=== PATIENT | male | born 1935 | race Caucasian/White ===

== ENCOUNTER → 2017-03-10 | Outpatient (CLI) | payer MEDICARE, BC ==
--- NOTE | 2017-03-10 13:29 | XR ---
EXAMINATION TYPE: XR tibia fibula RT DATE OF EXAM: 03/10/2017 CLINICAL HISTORY: Fall injury with pain. TECHNIQUE: Two views of the right leg are obtained. COMPARISON: None. FINDINGS: Osseous structures are somewhat demineralized which is noted lower radiographic sensitivity . There is no acute fracture or dislocation seen in the right tibia or fibula. Meniscal calcification s are present in the right knee. There is joint space loss and spurring patellofemoral compartment. C onsider pseudogout. There is additional spurring superior anterior patellar distal quadriceps tendon attachment. Ankle mortise symmetry is preserved. The overlying soft tissue appears unremarkable. IMPRESSION: There is no acute fracture or dislocation seen in the right tibia or fibula.
--- NOTE | 2017-03-10 14:19 | US ---
EXAMINATION TYPE: US abdomen complete DATE OF EXAM: 03/10/2017 COMPARISON: CT CLINICAL HISTORY: R10.11 RUQ PAIN. Pt states epigastric pain post prandial EXAM MEASUREMENTS: Liver Length: 13.6 cm Gallbladder Wall: 0.2 cm CBD: 0.6 cm Spleen: 8.4 cm Right Kidney: 10.7 x 4.6 x 5.2 cm Left Kidney: 11.5 x 4.9 x 5.0 cm Pt very gassy, limited visualization Pancreas: Obscured by bowel gas Liver: Cyst right lobe= 1.1 x 0.9 x 1.4 cm, other limited visualization showed no abnormality Gallbladder: wnl Evidence for sonographic Carpenter's sign: No CBD: wnl Spleen: wnl Right Kidney: Cyst upper pole= 0.5 cm Left Kidney: Parapelvic cysts, largest= 1.6 x 1.7 x 1.3 cm Upper IVC: wnl Abd Aorta: Proximal portion gassed out, mid and distal appeared ectatic with no evidence of AAA Results called to Dr. Hager at time of exam The pancreas is poorly visualized. The liver is normal in size without biliary dilatation. There is a 1.4 cm, simple appearing cyst in t he right lobe of the liver. The gallbladder is normal without evidence of cholelithiasis. The gallbladder wall measures 2 mm. The distal common hepatic duct measures 6 mm. The spleen is normal in size. There is a 5 mm hypoechoic lesion in the upper pole of the right kidney this is too small accurately characterize. There are parapelvic cysts involving the left kidney. Visualized portions of the aorta and IVC are normal. IMPRESSION: 1. SIMPLE RIGHT HEPATIC CYST. 2. TINY LESION IN THE UPPER POLE OF THE RIGHT KIDNEY, TOO SMALL TO CHARACTERIZE ACCURATELY. 3. PARAPELVIC CYSTS INVOLVING THE LEFT KIDNEY.
== END | disposition home or self-care (01) ==
LOC: RADUSWWP 12:38
PROVIDERS: ATTEND Family Medicine
DX: N28.9 Disorder of kidney and ureter, unspecified (principal); N28.1 Cyst of kidney, acquired; K76.89 Other specified diseases of liver; S80.11XA Contusion of right lower leg, initial encounter
CPT/HCPCS: 76700

== ENCOUNTER → 2017-04-02 | Outpatient (CLI) | payer MEDICARE, BC ==
--- NOTE | 2017-04-02 11:24 | NM ---
EXAMINATION TYPE: NM hepatobiliary w EF DATE OF EXAM: 04/02/2017 COMPARISON: Ultrasound 03/10/2017 HISTORY: 82-year-old male with abdominal pain TECHNIQUE: After the intravenous administration of 5.38 mCi Tc 99m Mebrofenin hepatobiliary scintigra phy is performed. Immediate images post injection. FINDINGS: There is satisfactory initial accumulation of tracer by the liver. The gallbladder is visualized wit hin 8 minutes. The small bowel activity is noted after Ensure administration. At one hour 8 ounces o f oral ensure plus is given to mimic CCK and gallbladder ejection fraction is calculated at 88 %, mitch vated above the typical range. IMPRESSION: 1. No scintigraphic evidence for acute/chronic cholecystitis or biliary dyskinesia. 2. Elevated gallbladder ejection fraction which has been described in the setting of gallbladder hype rkinesia.
== END | disposition home or self-care (01) ==
LOC: RADNMMAIN 07:25
PROVIDERS: ATTEND Family Medicine
DX: K82.8 Other specified diseases of gallbladder (principal); R10.9 Unspecified abdominal pain
CPT/HCPCS: 78226; A9537

== ENCOUNTER 2017-06-01 06:26 | Day surgery (SDC) | payer MEDICARE, BC ==
[2017-05-25 09:31] VITALS: BMI 26.4
[~2017-06-01 06:26] MED LIST: DEXAMETHASONE SOD PHOSPHATE 10 MG/ML 1 ML VIAL IV ONE; HEPARIN SODIUM,PORCINE 5,000 UNIT/ML 1 ML VIAL SQ ONE; HYDROmorphone 1 MG/ML 1 ML SYRINGE IVP PRN; LIDOCAINE 1% 20 ML VIAL (10MG/ML) FOR IV START INTRADERMA PRN; MIDAZOLAM 2 MG/2 ML VIAL IV PRN; SCOPOLAMINE 1.5MG/72HR PATCH TRANSDERM ONE; ceFAZolin 2 GM in SODIUM CHLORIDE 0.9% 100 ML IVPB ONE
[2017-06-01] MEDS: ONDANSETRON 4 MG/2 ML VIAL IVP ONE ×2 (07:00→12:03)
[2017-06-01] MEDS: LACTATED RINGERS 1,000 ML IV SCH ×3 (07:07→12:51)
--- NOTE | 2017-06-01 07:54 | P.GSHP ---
History of Present Illness H&P Date: 06/01/17 Chief Complaint: Right upper quadrant pain This is a 82-year-old male who's had complaints of right upper quadrant pain. His recent HIDA scan shows an elevated ejection fraction consistent with biliary hyperkinesis and chronic cholecystitis. 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 History of Any Multi-Drug Resistant Organisms: None Reported Past Surgical History: Hernia Repair Additional Past Surgical History / Comment(s): cataracts germaine eyes Past Anesthesia/Blood Transfusion Reactions: No Reported Reaction Smoking Status: Never smoker - Past Family History Mother Family Medical History: Cancer Father Family Medical History: Cancer Additional Family Medical History / Comment(s): prostate Medications and Allergies Home Medications Medication Instructions Recorded Confirmed Type Aspirin 81 mg PO DAILY 09/09/14 06/01/17 History Acetaminophen Tab [Tylenol] 650 mg PO Q6H PRN 10/03/14 06/01/17 History Pravastatin Sodium [Pravachol] 40 mg PO HS 10/03/14 06/01/17 History cloNIDine HCL [Catapres] 0.2 mg PO BID 11/11/15 06/01/17 History Cholecalciferol [Vitamin D3] 5,000 unit PO DAILY 05/25/17 06/01/17 History FLUoxetine HCL [PROzac] 20 mg PO DAILY 05/25/17 06/01/17 History Multivitamins, Thera [Multivitamin 1 tab PO DAILY 05/25/17 06/01/17 History (formulary)] Allergies Allergy/AdvReac Type Severity Reaction Status Date / Time No Known Allergies Allergy Verified 06/01/17 06:49 Surgical - Exam Vital Signs Temp Pulse Resp BP Pulse Ox 98.1 F 48 L 16 119/80 95 06/01/17 07:11 06/01/17 07:11 06/01/17 07:11 06/01/17 07:11 06/01/17 07:11 - General well developed, no distress - Eyes PERRL - ENT normal pinna - Neck no masses - Respiratory normal expansion - Cardiovascular Rhythm: regular - Abdomen Mild right upper quadrant tenderness Abdomen: soft Assessment and Plan Plan: Right upper quadrant pain Abnormal HIDA scan We'll perform laparoscopic cholecystectomy
[2017-06-01] MEDS ORDERED: LIDOCAINE 1% INJ 10MG/ML (20 ML MDV) ONE (07:57)
[2017-06-01] MEDS ORDERED: fentaNYL (PF) 50 MCG/ML 2 ML AMP ONE (07:57)
[2017-06-01] MEDS ORDERED: NEOSTIGMINE 1 MG/ML 10 ML VIAL ONE (07:57)
[2017-06-01] MEDS ORDERED: PROPOFOL 10 MG/ML 20 ML VIAL IV ONE (07:57)
[2017-06-01] MEDS ORDERED: GLYCOPYRROLATE 0.2 MG/ML 2 ML VIAL ONE (07:57)
[2017-06-01] MEDS ORDERED: SUCCINYLCHOLINE CHLORIDE 100 MG/5 ML SYR IV ONE (07:57)
[2017-06-01] MEDS ORDERED: ROCURONIUM BROMIDE 10 MG/ML 10 ML VIAL IV ONE (07:57)
[2017-06-01] MEDS ORDERED: LIDOCAINE 2%-EPI 1:100,000 20 ML VIAL SQ ONE (08:20)
[2017-06-01] MEDS ORDERED: BUPIVACAINE (PF) 0.25% 30 ML VIAL SQ ONE (08:20)
[2017-06-01 09:01] VITALS: TEMP 96.2
[2017-06-01] MEDS ORDERED: HYDROmorphone 1 MG/ML 1 ML SYRINGE IVP ONE ×4 (09:16→09:31)
[2017-06-01] MEDS ORDERED: fentaNYL (PF) 50 MCG/ML 2 ML AMP IVP ONE (09:36)
[2017-06-01] MEDS ORDERED: LACTATED RINGERS 1,000 ML IV ONE (09:41)
[2017-06-01 10:24] VITALS: RESP 16
[2017-06-01] MEDS ORDERED: HYDROcodone/APAP 7.5-325MG 1 EACH TAB PO ONE (10:58)
[2017-06-01 12:04] VITALS: BP 145/78; PULSE 76
--- NOTE | 2017-06-05 11:45 | OP ---
Date of Procedure: 06/01/17 Preoperative Diagnosis: Cholecystitis Postoperative Diagnosis: Cholecystitis Procedure(s) Performed: Laparoscopic cholecystectomy Implants: Anesthesia: DEX Surgeon: Richard Durán Estimated Blood Loss (ml): 5 Pathology: other (Gallbladder) Condition: stable Disposition: PACU Indications for Procedure: Operative Findings: Description of Procedure: The patient was placed on the operating table. The patient received a general endotracheal tube anesthesia. The patients abdomen was prepped and draped in the usual sterile fashion. Through an infraumbilical stab incision, the fascia of the anterior abdominal wall was grasped with a pair of Kochers and then the Veress needle was placed in the peritoneal cavity. Position of the Veress needle was confirmed with positive drop test. The abdomen was then insufflated. After adequate insufflation, the 10 mm trocar was placed in the peritoneal cavity. Following this the laparoscope was placed in the peritoneal cavity. The patient was placed in the head-up, right side up position and then a 5 mm trocar was placed in the right lateral and right subcostal position under direct visualization. A 8 mm trocar was placed in the epigastric position. The gallbladder was grasped in the fundus and infundibulum. Traction on the gallbladder was placed in the lateral and the cephalad positions. The triangle of Calot was visualized.. The cystic duct was bluntly dissected until the union of the cystic duct and common bile duct was seen. The cystic duct was then divided and sealed with the Harmonic scissors. A PDS Endoloop was then placed throughout the cystic duct stump. The cystic artery divided and sealed with the Harmonic scissors. The gallbladder was then removed from the liver bed using Harmonic scissors. The gallbladder was then extracted through the epigastric port site. Operative field was checked for any bleeding spots and Harmonic scissors was used to coagulate the liver bed. The abdomen was irrigated. The trocars were removed. The skin was closed using interrupted 3-0 Vicryl suture. Dermabond dressing were applied. The patient tolerated the procedure well. MICAH
== END 2017-06-01 13:02 | disposition home or self-care (01) ==
LOC: OR 06:26
PROVIDERS: ATTEND Surgery
DX: K81.1 Chronic cholecystitis (principal); E78.5 Hyperlipidemia, unspecified; I10 Essential (primary) hypertension; Z85.46 Personal history of malignant neoplasm of prostate; Z92.3 Personal history of irradiation; I69.328 Other speech and language deficits following cerebral infarction; Z79.82 Long term (current) use of aspirin; Z79.899 Other long term (current) drug therapy
CPT/HCPCS: 88304; 47562; J1644; J1100; J2710; J0690; J2405; J2001; J3010; J1170; J0330; J2704

== ENCOUNTER → 2017-12-22 | Outpatient (CLI) | payer MEDICARE, BC ==
--- NOTE | 2017-12-22 12:18 | CT ---
EXAMINATION TYPE: CT abdomen wo con DATE OF EXAM: 12/22/2017 HISTORY: Mid abd pain, history of prostate cancer. CT DLP: 661 mGycm. Automated Exposure Control for Dose Reduction was Utilized. TECHNIQUE: CT scan of the abdomen is performed without oral or IV contrast. COMPARISON: CT abdomen and pelvis September 14, 2012 FINDINGS: Within the limitations of a non-contrast study, the following observations are made. LUNG BASES: There is partial visualization of 6 mm groundglass nodule axial image 1 with central focu s of calcification. This is outside field of view on prior study. Advise nonemergent CT chest follow- up. Dependent atelectasis in both lung bases is present. There is additional focal linear scarring or atelectasis in the posterior right lung base. LIVER/GB: A few subcentimeter low dense lesions scattered throughout the liver are too small to furth er characterize but presumed benign. Gallbladder is now not visualized and presumed surgically absent . PANCREAS: No significant abnormality is seen. SPLEEN: No significant abnormality is seen. ADRENALS: No significant abnormality is seen. KIDNEYS: No right-sided renal calculi or hydronephrosis. There are subcentimeter low dense lesion lef t kidney posteriorly axial image 31 upper pole level stable presumed benign. There are 2 calculi scat tered throughout left kidney measuring up to 3 mm in size at level of left renal pelvis. There are pr ominent parapelvic cyst centrally in the left kidney. There is no hydronephrosis or obstructing proxi mal to mid left ureter calculi. BOWEL: There is small hiatal hernia. The small or large bowel dilatation. LYMPH NODES: No greater than 1cm abdominal lymph nodes are appreciated. OSSEOUS STRUCTURES: There is grade 1 anterolisthesis of L5 on S1. There is moderate to advanced multi level disc space narrowing and vacuum disc phenomenon L3-L4 through L5-S1 levels. OTHER: There is moderate to severe calcified plaque of abdominal aorta extending into visualized port ion of the iliac branch vessels. IMPRESSION: Small nonobstructing left-sided renal calculi. No bowel obstruction is seen. No significa nt acute finding is seen to account for patient's symptoms. Advise nonemergent chest CT follow-up for right lung findings.
== END | disposition home or self-care (01) ==
LOC: RADCTMAIN 11:34
PROVIDERS: ATTEND Family Medicine
DX: N20.0 Calculus of kidney (principal)
CPT/HCPCS: 74150

== ENCOUNTER → 2018-01-07 | Outpatient (CLI) | payer MEDICARE, BC ==
--- NOTE | 2018-01-07 10:17 | FL ---
EXAMINATION TYPE: FL barium swallow w SBFT DATE OF EXAM: 01/07/2018 CLINICAL HISTORY: Generalized abdominal pain. TECHNIQUE: A double contrast esophagram is performed utilizing air and barium. Small bowel follow th rough was then performed. A total of 2.1 minutes of fluoroscopy time was utilized during procedure. P t given 4oz EZHD, 12oz EZ aque, 1pkg EZGas. 41 fluoroscopic images were saved. COMPARISON: None FINDINGS: The esophagus shows normal motility and emptying into the stomach. There is a small hernia present. No stricture noted. 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 No signific ant gastroesophageal reflux was seen during real time performance of this study. The small bowel study shows normal transit to the colon in less than 20 minutes indicative of hyperpe ristalsis. There is normal mucosal fold pattern throughout the small bowel. There is no evidence of any stricture or filling defect noted. The terminal ileum is unremarkable. IMPRESSION: 1. Small hiatal hernia with no significant gastroesophageal reflux. 2. Small bowel hyperperistalsis with advancement of contrast into the descending colon by 20 minutes. 3. 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
== END | disposition home or self-care (01) ==
LOC: RADFLMAIN 07:46
PROVIDERS: ATTEND Family Medicine
DX: K44.9 Diaphragmatic hernia without obstruction or gangrene (principal); R19.2 Visible peristalsis
CPT/HCPCS: 74245

== ENCOUNTER 2018-11-14 15:03 | Observation (INO) | payer MEDICARE, BC ==
--- NOTE | 2018-11-14 16:14 | ED ---
General Adult HPI - General Chief complaint: Recheck/Abnormal Lab/Rx Stated complaint: abn labs Time Seen by Provider: 11/14/18 15:17 Source: patient, family, EMS, RN notes reviewed, old records reviewed (From [facility]) Mode of arrival: EMS Limitations: altered mental status, physical limitation - History of Present Illness Initial comments: Patient is a pleasant 83-year-old male presenting to the emergency Department with complaints of fall and arm pain. Patient was at [facility] ER earlier today and transferred. They did have concern for elevation of troponin. During discussion with physician there there was some concern for possible T6 compression fracture however I do not see documentation for that on the patient's computed tomography scan. is present and states she heard patient went brain. She states patient does have poor communication skills and this is evident during examination. Patient has limited verbal capability from previous stroke. Patient does complain only the discomfort of the right shoulder. Physician prior to transfer stated that they did reduce the shoulder. They also started patient on heparin. - Related Data Home Medications Medication Instructions Recorded Confirmed Aspirin 81 mg PO DAILY 09/09/14 11/14/18 Pravastatin Sodium [Pravachol] 40 mg PO HS 10/03/14 11/14/18 cloNIDine HCL [Catapres] 0.2 mg PO BID 11/11/15 11/14/18 Cholecalciferol [Vitamin D3] 5,000 unit PO DAILY 05/25/17 11/14/18 Multivitamins, Thera [Multivitamin 1 tab PO DAILY 05/25/17 11/14/18 (formulary)] Magnesium Gluconate [Magonate] 500 mg PO DAILY 11/14/18 11/14/18 Allergies Allergy/AdvReac Type Severity Reaction Status Date / Time No Known Allergies Allergy Verified 11/14/18 15:58 Review of Systems ROS Statement: Those systems with pertinent positive or pertinent negative responses have been documented in the HPI. ROS Other: All systems not noted in ROS Statement are negative. Constitutional: Denies: fever Eyes: Denies: eye pain ENT: Denies: ear pain Respiratory: Denies: cough Cardiovascular: Denies: chest pain Endocrine: Denies: fatigue Gastrointestinal: Denies: abdominal pain Genitourinary: Denies: dysuria Musculoskeletal: Reports: as per HPI, other (Right shoulder pain). 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 History of Any Multi-Drug Resistant Organisms: None Reported Past Surgical History: Hernia Repair Additional Past Surgical History / Comment(s): cataracts germaine eyes Past Anesthesia/Blood Transfusion Reactions: No Reported Reaction Past Psychological History: No Psychological Hx Reported Smoking Status: Never smoker - Past Family History Mother Family Medical History: Cancer Father Family Medical History: Cancer Additional Family Medical History / Comment(s): prostate General Exam Limitations: altered mental status General appearance: alert, in no apparent distress Head exam: Present: atraumatic Eye exam: Present: normal appearance, PERRL ENT exam: Present: normal oropharynx Neck exam: Present: normal inspection Respiratory exam: Present: normal lung sounds bilaterally Cardiovascular Exam: Present: regular rate, normal rhythm GI/Abdominal exam: Present: soft. Absent: tenderness Extremities exam: Present: other (Right arm is in a sling. There is tenderness to the shoulder region. Distally the extremity is intact.) Back exam: Present: normal inspection. Absent: tenderness Neurological exam: Present: alert, other (Limited speech. Does follow commands. ). Absent: motor sensory deficit Psychiatric exam: Present: normal affect, normal mood Skin exam: Present: normal color Course Vital Signs 11/14/18 11/14/18 11/14/18 15:09 16:43 17:15 Temperature 98.6 F Pulse Rate 86 96 92 Pulse Rate [ Pulse Oximetery ] Respiratory 18 18 18 Rate Blood Pressure 143/96 148/72 142/88 Blood Pressure [Left Arm Supine] O2 Sat by Pulse 96 100 95 Oximetry 11/14/18 11/14/18 11/14/18 17:48 18:28 18:51 Temperature 100.5 F H Pulse Rate 103 H 103 H Pulse Rate [ 100 Pulse Oximetery ] Respiratory 18 18 18 Rate Blood Pressure 140/87 149/90 Blood Pressure 157/81 [Left Arm Supine] O2 Sat by Pulse 98 94 L 95 Oximetry 11/14/18 11/14/18 19:26 20:06 Temperature 99.2 F 99.4 F Pulse Rate 105 H 105 H Pulse Rate [ Pulse Oximetery ] Respiratory 18 18 Rate Blood Pressure 149/96 140/82 Blood Pressure [Left Arm Supine] O2 Sat by Pulse 92 L 90 L Oximetry - Reevaluation(s) Reevaluation #1: 11/14/18 16:39 Case was discussed with Dr. Farmer who does recommend repeating shoulder x-ray and reduce if needed 11/14/18 17:[address] Golden, who will admit covering for Dr. Hager. EKG Findings - EKG Comments: EKG Findings:: Normal sinus rhythm 84. IL 138. QRS 86. QT 332. QTC 392. Left axis. Low QRS voltage. No acute ST change. Medical Decision Making - Lab Data Result diagrams: 11/15/18 04:57 11/15/18 05:12 Disposition Clinical Impression: Shoulder dislocation, Elevated troponin Disposition: ADMITTED IP TO THIS HOSP
[2018-11-14] MEDS ORDERED: HEPARIN SODIUM,PORCINE 5,000 UNIT/ML 1 ML VIAL IV PRN (16:39)
[2018-11-14] MEDS ORDERED: NITROGLYCERIN SL TABS 0.4 MG TAB SUBLINGUAL PRN (16:39)
[2018-11-14] MEDS ORDERED: HEPARIN SOD,PORK IN 0.45% NACL 25,000 UNIT in 0.45% NACL 1 250ML.BAG IV SCH (16:45)
[2018-11-14] MEDS: MORPHINE SULFATE 4 MG/ML SYRINGE IVP PRN ×2 (17:11→22:13)
[2018-11-14 18:45] LABS: Creatine Kinase MB 3.7 ng/mL (0.0-2.4)
[2018-11-14 18:50] LABS: Troponin I 0.068 ng/mL (0.000-0.034)
--- NOTE | 2018-11-14 19:19 | XR ---
EXAMINATION TYPE: XR shoulder complete RT DATE OF EXAM: 11/14/2018 COMPARISON: NONE HISTORY: Pain TECHNIQUE: Shoulder examined in 3 views FINDINGS: The humeral head articulates with the glenoid. The acromio-clavicular junction is normal. There is an avulsion of the greater tuberosity. A follow up study can be performed 7-10 days from acute trauma for continued pain. IMPRESSION: 1. Avulsion of the greater tuberosity right humerus.
[2018-11-14 20:46] VITALS: BMI 29.7
[2018-11-14] MEDS ORDERED: ACETAMINOPHEN TAB 325 MG TAB PO PRN (21:29)
[2018-11-14] MEDS ORDERED: PRAVASTATIN SODIUM 40 MG TAB PO SCH (21:30)
[2018-11-14] MEDS: NITROGLYCERIN OINT 1 INCH/GM PACKET TOPICAL SCH (21:58)
[2018-11-15 00:27] LABS: Troponin I 0.058 ng/mL (0.000-0.034)
[2018-11-15] MEDS: NITROGLYCERIN OINT 1 INCH/GM PACKET TOPICAL SCH ×2 (00:46→06:48)
[2018-11-15] MEDS: MORPHINE SULFATE 4 MG/ML SYRINGE IVP PRN (01:52)
[2018-11-15] MEDS ORDERED: ALPRAZolam 0.25 MG TAB PO PRN (02:25)
[2018-11-15 04:18] VITALS: TEMP 97.9
[2018-11-15] MEDS ORDERED: NALOXONE 0.4 MG/ML 1 ML VIAL IV STA (05:15)
[2018-11-15 05:23] LABS: Glucose,Whole Blood 163 mg/dL (75-99)
[2018-11-15] MEDS ORDERED: FLUMAZENIL 0.1 MG/ML 5 ML VIAL IVP STA (05:31)
[2018-11-15 05:32] LABS: Basophils % (A) 0 %; Eosinophils # (A) 0.1 k/uL (0-0.7); Eosinophils % (A) 1 %; HGB 15.2 gm/dL (13.0-17.5); Lymphocytes # (A) 1.2 k/uL (1.0-4.8); Lymphocytes % (A) 10 %; MCH 29.9 pg (25.0-35.0); MCHC 31.6 g/dL (31.0-37.0); MCV 94.7 fL (80.0-100.0); Mean Platelet Volume 6.7; Monocytes # (A) 0.9 k/uL (0-1.0); Monocytes % (A) 8 %; Neutrophils # (A) 9.2 k/uL (1.3-7.7); Neutrophils % (A) 80 %; Platelet Count 185 k/uL (150-450); RBC 5.07 m/uL (4.30-5.90); RDW 14.1 % (11.5-15.5); WBC 11.5 k/uL (3.8-10.6)
[2018-11-15] MEDS ORDERED: LORazepam 2 MG/ML INJ IV STA (05:32)
[2018-11-15 05:40] LABS: Partial Thromboplastin Time 45.6 sec (22.0-30.0); Prothrombin Time 10.8 sec (9.0-12.0)
[2018-11-15] MEDS ORDERED: DILTIAZEM DRIP BOLUS FROM BAG 1 MG SOLN IV ONE (05:53)
--- NOTE | 2018-11-15 05:55 | CT ---
EXAM: CT Head Without Intravenous Contrast CLINICAL HISTORY: possible seizure TECHNIQUE: Axial computed tomography images of the head/brain without intravenous contrast. CTDI is 51.8 mGy and DLP is 1148 mGy-cm. This CT exam was performed using one or more of the following dose reduction techniques: automated exposure control, adjustment of the mA and/or kV according to patient size, and/or use of iterative reconstruction technique. COMPARISON: No relevant prior studies available. FINDINGS: Brain: 2 Small areas of Subarachnoid hemorrhage are noted, one in the left and a second in the right frontal lobe. No additional areas of hemorrhage are identified. Area of encephalomalacia noted in the left temporal and parietal lobe. Mild diffuse volume loss.. Ventricles: Unremarkable. No ventriculomegaly. Bones/joints: Unremarkable. No acute fracture. Soft tissues: Unremarkable. Sinuses: Unremarkable as visualized. No acute sinusitis. Mastoid air cells: Unremarkable as visualized. No mastoid effusion. IMPRESSION: 2 small areas of subarachnoid hemorrhage noted in the frontal lobes. No other areas of hemorrhage are noted. Critical Value Communications 11/15/18 06:11 Call Doctor Regarding Intracranial Hemorrhage, called Dr. Brandon on 11/15 06:11 (-05:00)
[2018-11-15] MEDS ORDERED: DILTIAZEM 125 MG in SODIUM CHLORIDE 0.9% 100 ML IV SCH (06:00)
[2018-11-15 06:06] LABS: Calcium 9.3 mg/dL (8.4-10.2); Potassium 4.8 mmol/L (3.5-5.1)
[2018-11-15 07:03] VITALS: BP 161/86; PULSE 106; RESP 20
[2018-11-15] MEDS ORDERED: NON-FORMULARY DRUG (Magnesium Gluconate 500 MG) PO SCH (09:00)
[2018-11-15] MEDS ORDERED: ASPIRIN 325 MG TAB PO SCH (09:00)
[2018-11-15] MEDS ORDERED: CHOLECALCIFEROL 1,000 UNIT TAB PO SCH (09:00)
[2018-11-15] MEDS ORDERED: cloNIDine HCL 0.2 MG TAB PO SCH (09:00)
[2018-11-15] MEDS ORDERED: MULTIVITAMINS, THERA 1 EACH TAB PO SCH (12:00)
--- NOTE | 2018-11-15 17:26 | P.HPIM ---
History of Present Illness H&P Date: 11/15/18 Chief Complaint: Fall This is an 83-year-old gentleman who presented emergency department as a transfer from [facility]. The patient was seen and [facility] earlier for a fall and arm pain. The patient was found to have avulsion of the greater tuberosity of the right humerus. The patient was found to have elevated troponins and was subsequently transferred to our facility. The patient apparently has a history of a previous stroke and has limited verbal capacity. The patient's shoulder was reduced prior to arrival. The patient was started on heparin for NSTEMI. It is unclear if the patient had a CT of the brain done at [facility]. The patient was admitted and became increasingly confused and had possible seizure-like activity as noted from the room service attendant.. A rapid response was called and the patient was given Ativan for seizure like activity. The patient was taken down for stat CT of the brain. He was found to have 2 small areas of subarachnoid hemorrhage noted in the frontal lobes. Heparin was immediately discontinued. The patient had an episode of SVT and cardiology was notified. He was started on a heparin drip. [facility] was contacted regarding transfer due to the patient's new subarachnoid hemorrhages. The patient was transferred at 0700. 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 History of Any Multi-Drug Resistant Organisms: None Reported Past Surgical History: Hernia Repair Additional Past Surgical History / Comment(s): cataracts germaine eyes Past Anesthesia/Blood Transfusion Reactions: No Reported Reaction Past Psychological History: No Psychological Hx Reported Smoking Status: Never smoker Past Alcohol Use History: None Reported Past Drug Use History: None Reported - Past Family History Mother Family Medical History: Cancer Father Family Medical History: Cancer Additional Family Medical History / Comment(s): prostate Medications and Allergies Home Medications Medication Instructions Recorded Confirmed Type Aspirin 81 mg PO DAILY 09/09/14 11/14/18 History Pravastatin Sodium [Pravachol] 40 mg PO HS 10/03/14 11/14/18 History cloNIDine HCL [Catapres] 0.2 mg PO BID 11/11/15 11/14/18 History Cholecalciferol [Vitamin D3] 5,000 unit PO DAILY 05/25/17 11/14/18 History Multivitamins, Thera [Multivitamin 1 tab PO DAILY 05/25/17 11/14/18 History (formulary)] Magnesium Gluconate [Magonate] 500 mg PO DAILY 11/14/18 11/14/18 History Allergies Allergy/AdvReac Type Severity Reaction Status Date / Time No Known Allergies Allergy Verified 11/14/18 15:58 Physical Exam Osteopathic Statement: *. No significant issues noted on an osteopathic structural exam other than those noted in the History and Physical/Consult. Vitals: Vital Signs Temp Pulse Pulse Resp BP BP Pulse Ox 11/15/18 07:00 106 H 20 161/86 94 L 11/15/18 06:45 109 H 18 158/77 93 L 11/15/18 06:42 106 H 18 131/73 93 L 11/15/18 06:40 110 H 18 131/73 94 L 11/15/18 06:33 121 H 18 146/88 94 L 11/15/18 06:15 94 L 11/15/18 05:45 122 H 22 125/85 94 L 11/15/18 05:15 25 H 11/15/18 05:09 128 H 24 138/71 94 L 11/15/18 05:02 132 H 30 H 170/89 82 L 11/15/18 04:00 97.9 F 101 H 18 141/87 91 L 11/15/18 00:00 98.8 F 105 H 18 143/82 94 L 11/14/18 20:06 99.4 F 105 H 18 140/82 90 L 11/14/18 19:26 99.2 F 105 H 18 149/96 92 L 11/14/18 18:51 103 H 18 149/90 95 11/14/18 18:28 100.5 F H 100 18 157/81 94 L 11/14/18 17:48 103 H 18 140/87 98 Intake and Output 11/15/18 11/15/18 11/15/18 06:59 14:59 22:59 Intake Total 71.928 Output Total 125 Balance -53.072 Intake: Intake, IV Titration 71.928 Amount Heparin Sod,Pork in 0.45% 71.928 NaCl 25,000 unit In 0.45 % NaCl 1 250ml.bag @ 11. 02 UNITS/KG/HR 9.99 mls/ hr IV .Q24H [facility] Rx#: [id number] Output: Urine 125 Other: Voiding Method Urinal Diaper Weight 95.5 kg Physical exam was not completed as the patient was transferred in the middle of the night. And was subsequently transferred to [facility] prior to examination. Results CBC & Chem 7: 11/15/18 04:57 11/15/18 05:12 Labs: Abnormal Lab Results - Last 24 Hours (Table) 11/14/18 11/14/18 11/14/18 Range/Units 18:00 18:00 23:17 WBC (3.8-10.6) k/uL Neutrophils # (1.3-7.7) k/uL APTT 30.8 H 38.5 H (22.0-30.0) sec Chloride (98-107) mmol/L Carbon Dioxide (22-30) mmol/L Glucose (74-99) mg/dL POC Glucose (mg/dL) (75-99) mg/dL Total Creatine Kinase 738 H (55-170) U/L CK-MB (CK-2) 3.7 H (0.0-2.4) ng/mL Troponin I 0.068 H* (0.000-0.034) ng/mL LDL Cholesterol, Calc (0-99) mg/dL 11/14/18 11/15/18 11/15/18 Range/Units 23:17 04:57 05:02 WBC 11.5 H (3.8-10.6) k/uL Neutrophils # 9.2 H (1.3-7.7) k/uL APTT (22.0-30.0) sec Chloride (98-107) mmol/L Carbon Dioxide (22-30) mmol/L Glucose (74-99) mg/dL POC Glucose (mg/dL) 163 H (75-99) mg/dL Total Creatine Kinase 825 H (55-170) U/L CK-MB (CK-2) 4.0 H (0.0-2.4) ng/mL Troponin I 0.058 H* (0.000-0.034) ng/mL LDL Cholesterol, Calc (0-99) mg/dL 11/15/18 11/15/18 Range/Units 05:12 05:12 WBC (3.8-10.6) k/uL Neutrophils # (1.3-7.7) k/uL APTT 45.6 H (22.0-30.0) sec Chloride 114 H (98-107) mmol/L Carbon Dioxide 18 L (22-30) mmol/L Glucose 148 H (74-99) mg/dL POC Glucose (mg/dL) (75-99) mg/dL Total Creatine Kinase (55-170) U/L CK-MB (CK-2) (0.0-2.4) ng/mL Troponin I (0.000-0.034) ng/mL LDL Cholesterol, Calc 105 H (0-99) mg/dL Thrombosis Risk Factor Assmnt - Choose All That Apply Any of the Below Risk Factors Present?: Yes Each Factor Represents 1 point: Medical pt on bed rest Other Risk Factors: Yes Each Risk Factor Represents 3 Points: Age 75 years or older Other congenital or acquired thrombophilia - If yes, enter type in comment: No Thrombosis Risk Factor Assessment Total Risk Factor Score: 4 Thrombosis Risk Factor Assessment Level: Moderate Risk Assessment and Plan Assessment: Status post fall Avulsion of the right humerus Acute frontal lobe subarachnoid hemorrhages Encephalopathy Hypertension NSVT NSTEMI Possible seizure like activity Hyperglycemia History of stroke with residual dysarthria Dyslipidemia History of prostate cancer The patient was stabilized by nursing staff and subsequently transferred to [facility] for neurology and neurosurgery evaluation All anticoagulation on hold Seizure precautions Rate control with Cardizem
--- NOTE | 2018-11-15 17:28 | P.TRANS ---
Providers Date of admission: 11/14/18 16:40 Expected date of discharge: 11/15/18 Attending physician: Ortega Hager Consults: 11/14/18 16:40 Consult Physician Urgent Consulting Provider: Troy Farmer Consult Reason/Comments: shoulder dislocation, evaluate t6 Do you want consulting provider notified?: Already Contacted 11/14/18 17:02 Consult Physician Urgent Consulting Provider: Haroldo Palacios Consult Reason/Comments: cardiac evaluation Do you want consulting provider notified?: Yes Primary care physician: [facility] Course: This is an 83-year-old gentleman who presented emergency department as a transfer from [facility]. The patient was seen and [facility] earlier for a fall and arm pain. The patient was found to have avulsion of the greater tuberosity of the right humerus. The patient was found to have elevated troponins and was subsequently transferred to our facility. The patient apparently has a history of a previous stroke and has limited verbal capacity. The patient's shoulder was reduced prior to arrival. The patient was started on heparin for NSTEMI. It is unclear if the patient had a CT of the brain done at [facility]. The patient was admitted and became increasingly confused and had possible seizure-like activity as noted from the folder and notcher.. A rapid response was called and the patient was given Ativan for seizure like activity. The patient was taken down for stat CT of the brain. He was found to have 2 small areas of subarachnoid hemorrhage noted in the frontal lobes. Heparin was immediately discontinued. The patient had an episode of SVT and cardiology was notified. He was started on a heparin drip. [facility] was contacted regarding transfer due to the patient's new subarachnoid hemorrhages. The patient was transferred at 0700. Pertinent Studies: CT Brain Right shoulder Xray Patient Condition at Discharge: Critical Plan - Transfer Summary Follow up Appointment(s)/Referral(s): Ortega Hager MD [Primary Care Provider] - 1-2 days Discharge Disposition: OTHER INSTITUTION NOT DEFINED - Out of Hospital Transfer - Req. Specs Out of Hospital Transfer - Requested Specifics: Neurological ICU
== END 2018-11-15 07:31 | disposition short-term general hospital (02) ==
LOC: EC 15:03 → 3SCARD 16:40
PROVIDERS: ADMIT Family Medicine; ATTEND Family Medicine
DX: I21.4 Non-ST elevation (NSTEMI) myocardial infarction (principal); I60.8 Other nontraumatic subarachnoid hemorrhage; S43.004A Unspecified dislocation of right shoulder joint, initial encounter; I47.1 Supraventricular tachycardia; E78.5 Hyperlipidemia, unspecified; I10 Essential (primary) hypertension; G93.40 Encephalopathy, unspecified; Z92.3 Personal history of irradiation; I69.322 Dysarthria following cerebral infarction; R56.9 Unspecified convulsions; Z79.82 Long term (current) use of aspirin; Z79.899 Other long term (current) drug therapy; Z85.46 Personal history of malignant neoplasm of prostate
CPT/HCPCS: 96376 ×2; 96366 ×2; 96375 ×2; 96365; 99285; 36415; 93005; 80061; 80048; 82550; 82553; 83735; 84484; 85025; 85610; 85730 ×2; 73030; 70450; G0378 ×2; J2060; J2270 ×2; J2310; J1644

== ENCOUNTER → 2021-12-09 | Outpatient (CLI) | payer MEDICARE, BC ==
--- NOTE | 2021-12-09 15:41 | CT ---
"EXAMINATION TYPE: CT abdomen pelvis wo con DATE OF EXAM: 12/09/2021 COMPARISON: Outside CT scan dated 11/14/2018 HISTORY: flank pain CT DLP: 770.8 mGycm Automated exposure control for dose reduction was used. TECHNIQUE: Helical acquisition of images was performed from the lung bases through the pelvis. FINDINGS: LUNG BASES: Scattered subsegmental pulmonary atelectasis. LIVER/GB: Scattered few hepatic hypodensities measuring up to 16mm, likely representing hepatic cysts , stable. Previous cholecystectomy. PANCREAS: No significant abnormality is seen. SPLEEN: No significant abnormality is seen. ADRENALS: No significant abnormality is seen. KIDNEYS: 2 mm left renal calculus versus arterial calcification, otherwise no definite radiodense yi al, ureteric or urinary bladder calculi. Prominent left renal collecting system versus parapelvic yi al cysts, suboptimally assessed. No right-sided hydroureter or hydronephrosis. No left-sided hydroure ter. No other definite renal lesion by this nonenhanced CT scan. Grossly unremarkable urinary bladder . Enlarged prostate with fiducial markers, please correlate with PSA level. Unremarkable seminal vesi cles. FREE AIR: No free air is visualized RETROPERITONEAL ADENOPATHY: No pathologically enlarged PELVIC ADENOPATHY: No pathologically enlarged lymph nodes. OSSEOUS STRUCTURES: Osteopenia. 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 Retrolisthesis of L4 over L5. Upper endpl ate depression of L2 vertebral body with mild anterior wedging and surrounding fat stranding which co uld be related to acute to subacute compression fracture, please correlate clinically. This wasn't ap preciated in 2019 CT scan. BOWEL: Small sliding hiatal hernia, otherwise unremarkable stomach. Second part of the duodenum dive rticulum measuring 3.8 cm. Unremarkable small bowel. Colonic diverticulosis, extensive in the sigmoid colon and to a lesser extent the descending colon. Normal appendix. OTHER: Extensive arterial atherosclerotic calcifications. No sizable ascites. Small left fat-containi ng inguinal hernia IMPRESSION: 1. 2 mm left renal calculus versus arterial calcification, otherwise no definite radiodense urinary c alculi. Prominent left renal collecting system versus parapelvic renal cysts, suboptimally assessed b y this nonenhanced CT scan. Further CT urogram or ultrasound assessment can be considered. 2. Osteopenia with suspected acute or subacute compression fracture of L2 vertebral body as described above. Recommend clinical correlation. Further CT assessment of the lumbar spine can be considered i f clinically required. Other incidental findings as detailed above. A [place] level critical message alert has been initiated for Ortega Hager MD via the [employer] 36 0 | Critical Results System on 12/09/2021 3:38 PM. This message alert has been sent to Ortega Hager MD via the preferences provided by the clinician for the receipt of Radiology Critical Findings. Mess age ID [id number]."
[2021-12-09 16:07] LABS: Basophils % (A) 0 %; Eosinophils # (A) 0.1 k/uL (0-0.7); Eosinophils % (A) 2 %; HCT 50.6 % (39.0-53.0); HGB 16.5 gm/dL (13.0-17.5); Lymphocytes # (A) 1.4 k/uL (1.0-4.8); Lymphocytes % (A) 16 %; MCH 30.7 pg (25.0-35.0); MCHC 32.6 g/dL (31.0-37.0); MCV 94.4 fL (80.0-100.0); Mean Platelet Volume 6.8; Monocytes # (A) 0.7 k/uL (0-1.0); Monocytes % (A) 8 %; Neutrophils # (A) 6.7 k/uL (1.3-7.7); Neutrophils % (A) 73 %; Platelet Count 287 k/uL (150-450); RBC 5.36 m/uL (4.30-5.90); RDW 12.6 % (11.5-15.5); WBC 9.2 k/uL (3.8-10.6)
[2021-12-09 16:24] LABS: ALT 28 U/L (4-49); AST 27 U/L (17-59); African American GFR (CKD) 59 (>60 ml/min/1.73 sqM); Albumin 3.9 g/dL (3.5-5.0); Albumin/Globulin Ratio 1.1; Alkaline Phosphatase 124 U/L (38-126); Anion Gap 11 mmol/L; Blood Urea Nitrogen 21 mg/dL (9-20); Calcium 9.5 mg/dL (8.4-10.2); Carbon Dioxide 20 mmol/L (22-30); Chloride 107 mmol/L (98-107); Globulin 3.4 g/dL; Glucose 109 mg/dL (74-99); Lipase 29 U/L (23-300); Non-African American GFR(CKD) 51 (>60 ml/min/1.73 sqM); Potassium 4.2 mmol/L (3.5-5.1); Sodium 138 mmol/L (137-145); Total Bilirubin 0.8 mg/dL (0.2-1.3); Total Protein 7.3 g/dL (6.3-8.2)
[2021-12-09 17:17] LABS: C Reactive Protein 3.2 mg/dL (<1.0)
== END | disposition home or self-care (01) ==
LOC: RADCTMAIN 14:26
PROVIDERS: ATTEND Family Medicine
DX: R10.9 Unspecified abdominal pain (principal); I10 Essential (primary) hypertension; B89 Unspecified parasitic disease; M85.88 Other specified disorders of bone density and structure, other site; Z79.899 Other long term (current) drug therapy
CPT/HCPCS: 74176; 80053; 83036; 83690; 84443; 85025; 86140